=== PATIENT | female | born 1975 | race Caucasian/White ===

== ENCOUNTER 2023-12-18 06:28 | Emergency (ER) | payer OTHER ==
[~2023-12-18] VITALS: Ht 157.5 cm; Wt 69.1 kg
[~2023-12-18 06:28] MED LIST: ALLEGRA ALLERGY60 MG; NEXIUM2.5 MG; PREDNISONE20 MG PO
[2023-12-18] MEDS ORDERED: SUDOGEST30 MG (06:40)
[2023-12-18 06:46] LABS: HEMOGLOBIN 12.6 g/dL (12.0-18.0); MCHC 32.4 g/dl (30-36); MCV 87.4 fl (81-99); RBC 4.46 M/ul (4.3-5.7)
[2023-12-18 06:48] LABS: MCH 28.3 (27-36); PLATELET COUNT 175 K/uL (140-440)
[2023-12-18 07:07] LABS: ALBUMIN 3.6 g/dL (3.4-5.0); ALBUMIN/GLOBULIN RATIO 1.09 (1.1-2.4); ALKALINE PHOSPHATASE 70 U/L (46-116); ALT (SGPT) 20 U/L (14-59); ANION GAP 11.9 (7-21); AST (SGOT) 10 U/L (15-37); BILIRUBIN, TOTAL 0.2 ng/dL (0.2-1.0); CALCIUM 9.2 mg/dL (8.5-10.1); CARBON DIOXIDE 27 mmol/L (21-32); CHLORIDE 105 mmol/L (98-107); CREATININE, SERUM 0.76 mg/dL (0.55-1.02); GLOMERULAR FILTRATION RATE,EST 98 mL/min (>60); POTASSIUM 3.9 mmol/L (3.5-5.1); PROTEIN, TOTAL 6.9 g/dL (6.4-8.2); UREA NITROGEN 13 mg/dL (7-18)
[2023-12-18 07:15] LABS: BANDS, MANUAL DIFF 16; BASOPHILS, MANUAL DIFF 1; EOSINOPHILS, MANUAL DIFF 5; LYMPHOCYTES, MANUAL DIFF 45; MONOCYTES, MANUAL DIFF 7; NEUTROPHILS, MANUAL DIFF 26
[2023-12-18] MEDS ORDERED: ELIQUIS5 M1 PO (08:42)
[2023-12-18] MEDS ORDERED: APIXABAN 5 MG TAB PO ONE (08:45)
[2023-12-18 08:48] VITALS: BP 110/68
--- NOTE | 2023-12-18 11:46 | EKG ---
[facility] [address] [place] [address] Signed Normal sinus rhythm Cannot rule out Anterior infarct , age undetermined Abnormal ECG No previous ECGs available Confirmed by Ani Paul ([id number]) on 12/18/2023 11:45:59 AM Electronically Signed By: ANI PAUL MD 12/18/23 1146 PATIENT NAME: LEW ABRAMS Electrocardiogram DATE OF : 79 PHYSICIAN: ANI PAUL MD REPORT #: [id number] REPORT IS CONFIDENTIAL AND NOT TO BE RELEASED WITHOUT AUTHORIZATION
== END 2023-12-18 08:48 | disposition home or self-care (01) ==
LOC: ED 06:28
PROVIDERS: Emergency Medicine
DX: R07.89 Other chest pain (principal); C50.919 Malignant neoplasm of unspecified site of unspecified female breast; K21.9 Gastro-esophageal reflux disease without esophagitis; Z79.899 Other long term (current) drug therapy
CPT/HCPCS: 36415; 71045; 71260; 80053; 83880; 84484; 85025; 85379; 93005; 93010; 99285-25; Q9967

== ENCOUNTER 2024-02-13 07:53 | Emergency (ER) | payer OTHER ==
[~2024-02-13] VITALS: Ht 157.5 cm; Wt 70.1 kg
[~2024-02-13 07:53] MED LIST changes: +ELIQUIS5 M1 PO; +SUDOGEST30 MG
[2024-02-13] MEDS ORDERED: DEXAMETHASONE4 MG PO (08:06)
[2024-02-13] MEDS ORDERED: CEFTRIAXONE/SODIUM CHLORIDE 2 GM/100 ML PIGGYBACK IV ONE (08:15)
[2024-02-13] MEDS ORDERED: SODIUM CHLORIDE 0.9% 1,000 ML IV ONE (08:15)
[2024-02-13 08:17] LABS: BASOPHILS 0.7 % (0-2); HEMATOCRIT 28.1 % (35.0-50.0); HEMOGLOBIN 9.6 g/dL (12.0-18.0); LYMPHOCYTES 7.2 % (24-44); MCH 30.3 (27-36); MCHC 34.4 g/dl (30-36); MONOCYTES 7.1 % (0-12); PLATELET COUNT 300 K/uL (140-440); RBC 3.19 M/ul (4.3-5.7); RDW 17.8 (10.5-15.0)
[2024-02-13 08:31] LABS: INR 1.09 (0.80-1.30); PARTIAL THROMBOPLASTIN TIME 31.5 Sec (22.9-41.3); PROTIME 13.4 Sec (11.2-14.2)
[2024-02-13 08:35] LABS: ALBUMIN 3.1 g/dL (3.4-5.0); ALBUMIN/GLOBULIN RATIO 0.91 (1.1-2.4); ANION GAP 11.9 (7-21); BILIRUBIN, TOTAL 0.3 ng/dL (0.2-1.0); BUN/CREATININE RATIO 18.68 (6.0-28.6); CALCIUM 8.5 mg/dL (8.5-10.1); CREATININE, SERUM 0.91 mg/dL (0.55-1.02); POTASSIUM 3.9 mmol/L (3.5-5.1); PROTEIN, TOTAL 6.5 g/dL (6.4-8.2)
[2024-02-13 09:03] LABS: BILIRUBIN, URINE NEGATIVE (negative); BLOOD/HGB, URINE NEGATIVE (Negative); KETONE, URINE NEGATIVE (Negative); LEUK ESTERASE, URINE NEGATIVE (negative); NITRITE, URINE NEGATIVE (negative); PH, URINE 5.5 (5-7)
[2024-02-13 09:56] LABS: INFLUENZA B NAA NEGATIVE (NEGATIVE); RESPIRATORY SYNCYTIAL VIR NAA NEGATIVE (NEGATIVE)
[2024-02-13 10:30] VITALS: BP 105/70
== END 2024-02-13 10:30 | disposition home or self-care (01) ==
LOC: ED 07:53
PROVIDERS: Emergency Medicine
DX: R50.9 Fever, unspecified (principal); C50.919 Malignant neoplasm of unspecified site of unspecified female breast; Z79.633 Long term (current) use of mitotic inhibitor; Z88.1 Allergy status to other antibiotic agents; Z79.01 Long term (current) use of anticoagulants
CPT/HCPCS: 36415; 71045; 80053; 81003; 85025; 85610; 85730; 87040; 87502; 96374; 99283-25; J0696; J7030; U0002